=== PATIENT | male | born 1970 | race African-American/Black ===

== ENCOUNTER 2022-02-08 07:50 | Emergency (ER) | payer MEDICARE, MEDICAID, SELFPAY ==
[2022-02-08] MEDS: ondansetron HCL 4 MG/2 ML VIAL IVPUSH (07:50)
[2022-02-08] MEDS: Naloxone HCl Nasal 4 MG SPRAY NOSTRILALT (07:50)
[2022-02-08 07:56] VITALS: BP 152/102; BP 212/93; PULSE 106; PULSE 114; RESP 20; TEMP 37.1; O2SAT 96; O2SAT 97; BMI 28.8
[2022-02-08 08:13] VITALS: BP 151/98; PULSE 100; O2SAT 99
--- NOTE | 2022-02-08 08:13 | ED.OVERDOSE ---
HPI - Overdose General Chief Complaint: Overdose Stated Complaint: Overdose Time Seen by Provider: 02/08/22 08:10 Source: patient and EMS Mode of arrival: EMS History of Present Illness HPI Narrative: 51-year-old male who states that he is currently [facility] is brought in by ambulance when they were called because patient was acting erratically and stating that he had used crack and then became unconscious with an O2 sat of 35% and shallow infrequent respirations. Use brought to the emergency room with 100% non-rebreather by EMS and was noted to have shallow sonorous breathing, immediate Narcan was administered, IV was established. Related Data Allergies Allergy/AdvReac Type Severity Reaction Status Date / Time No Known Allergies Allergy Verified 02/08/22 08:00 Review of Systems Review of Systems: Pertinent positives and negatives as stated in HPI 10 point review of systems otherwise negative. PMFSH Past Medical History Source: nursing notes reviewed Social History Social History Alcohol intake: current Patient Tobacco Use Status: Current everyday Tobacco user Use of substances other than those prescribed or required for medical reasons: Yes Advance Directives: No Advance Directives Information Provided: No Physical Exam Vital Signs: Vital Signs: Last Vital Signs Temp 98.7 F 02/08/22 07:56 Pulse 91 02/08/22 11:14 Resp 16 02/08/22 11:14 BP 121/71 02/08/22 11:14 Pulse Ox 95 02/08/22 11:14 O2 Del Method 02/08/22 11:14 O2 Flow Rate 2 02/08/22 09:06 Oxygen Flow Rate 2 02/08/22 07:56 BMI result Body Mass Index 28.8 VITAL SIGNS: Reviewed. AFTER NASAL NARCAN WAS GIVEN GENERAL: Well developed, well nourished, in MINIMAL distress. HEAD: Normocephalic/atraumatic EYES: PERRLA, EOMI, pinpoint pupils EARS: Ext canals without abnormality OROPHARYNX: no oral lesions noted, posterior pharynx clear with small amount blood noted on the tone NECK: Supple, no adenopathy LUNGS: Normal breath sounds. No adventitious sounds or accessory muscle use. SpO2<99> on 2 L nasal cannula CARDIOVASCULAR: Regular rate and rhythm without noted murmurs ABDOMEN: Soft, non-tender, non-distended with bowel sounds. MUSCULOSKELETAL: No tenderness, deformities, or effusions noted on gross inspection. EXTREMITIES: No cyanosis, clubbing or edema. SKIN: Inspection of the skin reveals no rashes NEUROLOGIC: Alert and oriented x 3 after Narcan. Strength and sensation to light touch were grossly intact x 4. Course Course Course Narrative: 51-year-old male with history and clinical presentation consistent with accidental overdoses patient denies any suicidal homicidal ideations. Patient appears to be in a detox program at present but will place JORDAN eval, patient is currently awake but will remain on capnography until discharge and at that time will be discharged home with home Narcan. Patient is otherwise doing well, he has seen the women's swim coach and is at this time declining any further detox intervention and is scheduled to enter into a program through [facility]. He is otherwise discharged home in stable condition with home Narcan. Discharge Plan Discharge Clinical Impression: Drug overdose Patient Disposition: Home, Self-Care Instructions: Adult Overdose (ED) Additional Instructions: Stay off the drugs and be successful at [facility]. Do not hesitate to return to this ER if you need any additional help. Referrals: Mauricio Sherman [Primary Care Provider] -
[2022-02-08 09:06] VITALS: BP 132/85; PULSE 102; RESP 18; O2SAT 97
--- NOTE | 2022-02-08 09:49 | PC.NURSE ---
Pt remains asleep, vitals stable, ETC02 41, sat 99% on 2lpm. Awakes to verbal stimuli. CARE team to bedside but will reassess when pt more awake for detox needs however pt [facility]
[2022-02-08 11:14] VITALS: BP 121/71; PULSE 91; RESP 16; O2SAT 95
--- NOTE | 2022-02-08 11:16 | HO.SUDE ---
Met with pt in ED6 after pt was BIBA after patient was found acting erratically and reporting he had used crack. [employer] pt had an O2 sat of 35% and shallow infrequent respirations. Upon arrival received Narcan with positive effect. Upon entering pts room, pt asleep but easily awakens to voice. Pt thankful for help he has received and frustrated with self for using this morning. Pt reports having been dc from [place] [id number] ([facility]) last Friday. Last use of substances was December 06. Pt reports hx of heroin use, 1 bundle daily IN, as well as crack cocaine. Pt reports marijuana daily. Pt reports since being discharged from [facility] staying at a friend's house that is safe and supportive. This morning pt reports going to hand picker med bag at a different place and on the way was walking with someone when they decided to get heroin. Pt reports using one bag, IN, states I didn't even use a straw, I just opened the bag and sniffed it while I was walking. Pt reports this is first overdose. Pt educated regarding fentanyl and using substances after a period of abstinence. Pt reports longest period in recovery was 3 years after moving to [place] from [place] in 2012. Pt has been receiving Suboxone through the [place] since November, reports one 8 mg film daily. Pt reports Suboxone is in med bag that is going to be picked up today. Reports last dose was 2 days ago. Per [facility], pt has not filled a Suboxone script in at least 2 years. Educated pt regarding precipitated withdrawal and options for restarting/taking Suboxone after using full agonist opioids. Pt understands, denies questions. Pt declines recovery resources/referrals at this time. Plan is to return to safe housing and return to [place] next week to begin a JORDAN program. Pt educated regarding [facility] and other community supports. Pt denies other questions or concerns. Discussed with ED provider.
[2022-02-08] MEDS: Naloxone HCl Nasal TAKE HOME 4 MG SPRAY NOSTRILALT (12:07)
--- NOTE | 2022-02-08 12:14 | PC.NURSE ---
PT AWAKE, ALERT. ANSWERING QUESTIONS APPROPRIATELY. SKIN WARM AND DRY. RESP UNLABORED. DENIES N/V. NO C/O PAIN. IV REMOVED. PLAN IS FOR DC HOME. NARCAN GIVEN UPON DC. PT AGREEABLE. DENIES SI/HI.
== END 2022-02-08 12:15 | disposition home or self-care (01) ==
PROVIDERS: Emergency Provider Student in an Organized Health Care Education/Training Program; PCP Internal Medicine
DX: T40.5X1A Poisoning by cocaine, accidental (unintentional), initial encounter (principal); Y92.9 Unspecified place or not applicable; F17.200 Nicotine dependence, unspecified, uncomplicated; Z71.6 Tobacco abuse counseling; Z71.51 Drug abuse counseling and surveillance of drug abuser
CPT/HCPCS: 96374; 99284; J2405

== ENCOUNTER 2022-02-09 21:08 | Emergency (ER) | payer MEDICARE, MEDICAID, SELFPAY ==
--- NOTE | ~2022-02-09 | CT_ITS ---
EXAMINATION: CT HEAD WITHOUT CONTRAST CLINICAL INFORMATION: Fall. Overdose. COMPARISON: None. TECHNIQUE: Contiguous axial imaging was performed from the skull base to vertex without intravenous contrast. This CT examination was performed using dose optimization techniques as appropriate, variously including the following: * Automated exposure control * Adjustment of mA and/or kV according to patient size (this includes techniques or standardized protocols for targeted exams where dose is matched to indication/reason for exam; i.e. extremities or head) Use of iterative reconstruction technique DLP: 657 mGy-cm. FINDINGS: There is no evidence of acute intracranial hemorrhage or territorial infarction. No abnormal mass effect or midline shift is seen. Nath to white matter differentiation is well preserved. No extra-axial fluid collections are identified. No hydrocephalus. No significant volume loss. There is no abnormal attenuation within the brain parenchyma. The osseous structures and soft tissues are normal. The mastoid air cells and visualized portions of the paranasal sinuses are well aerated. CT/CT head/brain wo con IMPRESSION: No acute intracranial pathology.
--- NOTE | ~2022-02-09 | XR_ITS ---
EXAMINATION: XR CHEST CLINICAL INFORMATION: Shortness of breath, vomiting. COMPARISON: Chest radiograph 07/10/2014. TECHNIQUE: AP view of the chest was obtained. FINDINGS: Cardiomediastinal silhouette is within normal limits for technique. Multifocal interstitial thickening and hazy attenuation of the lungs. No pleural effusion. No pneumothorax. No acute osseous abnormalities. XR/XR chest 1V IMPRESSION: Multifocal interstitial opacities could be a manifestation of an atypical infection. Recommend clinical correlation and a follow-up imaging after treatment to ensure resolution.
--- NOTE | 2022-02-09 21:14 | ED.OVERDOSE ---
HPI - Overdose General Chief Complaint: Overdose Stated Complaint: od Time Seen by Provider: 02/09/22 21:09 Source: EMS Mode of arrival: EMS Limitations: altered mental status (patient minimally responsive) History of Present Illness HPI Narrative: This is a 52-year-old male unknown medical history presenting to the emergency department via ambulance for an opiate overdose. According to EMS patient was [place] unresponsive in the park by police, police gave 4 mg of intranasal Narcan, when EMS arrived they started a 20 gauge IV and gave 2 mg of IV Narcan with good response, patient became extremely agitated and combative however. Patient responding only to painful stimuli, alert to person, not time, place or situation. I am unable to obtain an accurate history from patient as he is minimally responsive. According to EMS patient is not from the area and he recently moved from [place]. Paraphernalia was found around patient with 3 bundles of heroion Or fentanyl. Related Data Previous Rx's Medication Instructions Recorded azithromycin 250 mg tablet See Rx Instructions PO .COMPLEX #6 02/10/22 tabs naloxone 4 mg/actuation nasal 4 mg intranasal Q2M PRN opioid 02/10/22 spray (Narcan) overdose #2 ea Allergies Allergy/AdvReac Type Severity Reaction Status Date / Time No Known Allergies Allergy Verified 02/08/22 08:00 Review of Systems Review of Systems: Yes Unobtainable due to mental status PMFSH Past Medical History Attestation statement: The following information was validated with the patient. Source: old records reviewed and nursing notes reviewed Social History Social History Alcohol intake: current Patient Tobacco Use Status: Current everyday Tobacco user Advance Directives: No Advance Directives Information Provided: No Physical Exam Vital Signs: Vital Signs: Last Vital Signs Temp 98.0 F 02/09/22 21:28 Pulse 92 02/10/22 00:00 Resp 19 02/10/22 00:00 BP 160/65 H 02/10/22 00:00 Pulse Ox 96 02/10/22 00:00 O2 Del Method 02/10/22 00:00 BMI result Body Mass Index 25.4 Stable vitals Appearance: Patient awakes to painful stimuli. No acute distress.? Head: Normocephalic, atraumatic, no step-offs or deformities Eyes: Pupils equal, round and reactive to light.? Bilateral pupils pinpoint ENT: Pharynx normal.? Neck: Normal inspection.? Neck supple.? CVS: Normal heart rate and rhythm.? Pulses normal.? Respiratory: No respiratory distress.? Breath sounds normal.? Abdomen: Soft and nontender.? Skin: Skin warm and dry.? Normal skin color.? Normal skin turgor.? Extremities: No lower extremity edema.? No calf ttp. 5/5 strength to bilateral upper and lower extremities Neuro: Patient wakes to painful stimuli. Course Reevaluation(s) Reevaluation #1: CBC within normal limits. Chemistry with no acute electrolyte abnormalities requiring intervention. Ethanol negative. COVID negative. CT of head no acute findings. CXR with multifocal opacities patient will be dc with azithro for possible viral pna, however patient with stable vitals and clear lungs patient without complaints of sob or CP. Now that patient is much more alert and awake, able to obtain a physical exam which is nonfocal, 5/5 strength upper and lower extremities, following commands, answering questions appropriately, cranial nerves 2-12 intact. Denies SI/HI. Was an accidental OD At this time patient will be placed in physician observation to allow more time to be evaluated by the care team for a substance use disorder evaluation. Time observation was started patient common cooperative. Will continue to monitor Sign out to Dr. Malcolm. Time: 01:55 MDM - Overdose MDM Narrative Medical decision making narrative: [id number] 52-year-old male presents to the emergency department with EMS for an opiate overdose, found in an alley not responding. Police gave him 4 mg of intranasal Narcan, ambulance gave him 2 mg of IV Narcan, patient now awake and responding to voice and sternal rub. Denies any complaints at this time Physical examination benign. Stable vitals. Plan medical clearance. SUDE Medical Records Attestation: I reviewed the patient's medical records. Lab Data Attestation: I reviewed the patient's lab results. Result diagrams: 02/09/22 22:05 02/09/22 22:05 Labs: Lab Results 02/09/22 02/09/22 02/09/22 Range/Units 21:58 22:05 22:05 WBC 10.7 (4.8-10.8) X10*3/uL RBC 4.39 L (4.60-5.80) X10*6/uL Hgb 11.6 L (14.0-18.0) g/dl Hct 36.5 L (42.0-52.0) % MCV 83.1 (80.0-98.0) fL MCH 26.4 L (27.0-33.0) pg MCHC 31.8 (31.0-36.0) g/dl RDW 13.6 (11.0-16.0) % Plt Count 244 (160-400) X10*3/uL MPV 10.5 (9.4-12.4) fL Immature Gran % (Auto) 0.3 (0.0-0.4) % Neut % (Auto) 61.6 (45-73) % Lymph % (Auto) 27.3 (20-40) % [place] % (Auto) 7.8 (2-11) % Eos % (Auto) 2.5 (0-4) % Baso % (Auto) 0.5 (0-2) % Lymph # (Auto) 2.9 (1.2-4.9) X10*3/uL [place] # (Auto) 0.8 (0.1-1.2) X10*3/uL Eos # (Auto) 0.3 (0.0-0.4) X10*3/uL Baso # (Auto) 0.1 (0.0-0.2) X10*3/uL Abs Immat Gran (auto) 0.03 (0.00-0.03) X10*3/uL Absolute Neuts (auto) 6.6 (2.0-8.3) x10*3/uL Absolute Nucleated RBC 0.000 (0.0-0.012) X10*3/uL Nucleated RBC % (auto) 0.0 (0.0-0.2) /100WBC Sodium 145 (135-145) mmol/L Potassium 3.6 (3.3-5.1) mmol/L Chloride 110 H (96-108) mmol/L Carbon Dioxide 23 (22-29) mmol/L Anion Gap 16 (12-20) BUN 21 H (9-16) mg/dL Creatinine 1.19 (0.5-1.4) mg/dL Estim Creat Clear Calc 77.8 Estimated GFR > 60 Random Glucose 108 (60-115) mg/dL Calcium 8.8 (8.4-10.2) mg/dL Magnesium 2.2 (1.6-2.6) mg/dL Total Bilirubin 0.5 (0.0-1.0) mg/dL AST 60 H (5-37) U/L ALT 49 H (0-40) U/L Alkaline Phosphatase 78 (39-117) U/L Total Protein 7.3 (6.5-8.0) g/dL Albumin 4.1 (3.5-5.0) g/dL Ethyl Alcohol mg/dL COVID-19 (SIRI) Negative (Negative) COVID-19 Clin Com See Note 02/09/22 Range/Units 22:05 WBC (4.8-10.8) X10*3/uL RBC (4.60-5.80) X10*6/uL Hgb (14.0-18.0) g/dl Hct (42.0-52.0) % MCV (80.0-98.0) fL MCH (27.0-33.0) pg MCHC (31.0-36.0) g/dl RDW (11.0-16.0) % Plt Count (160-400) X10*3/uL MPV (9.4-12.4) fL Immature Gran % (Auto) (0.0-0.4) % Neut % (Auto) (45-73) % Lymph % (Auto) (20-40) % Ren[place] % (Auto) (2-11) % Eos % (Auto) (0-4) % Baso % (Auto) (0-2) % Lymph # (Auto) (1.2-4.9) X10*3/uL [place] # (Auto) (0.1-1.2) X10*3/uL Eos # (Auto) (0.0-0.4) X10*3/uL Baso # (Auto) (0.0-0.2) X10*3/uL Abs Immat Gran (auto) (0.00-0.03) X10*3/uL Absolute Neuts (auto) (2.0-8.3) x10*3/uL Absolute Nucleated RBC (0.0-0.012) X10*3/uL Nucleated RBC % (auto) (0.0-0.2) /100WBC Sodium (135-145) mmol/L Potassium (3.3-5.1) mmol/L Chloride (96-108) mmol/L Carbon Dioxide (22-29) mmol/L Anion Gap (12-20) BUN (9-16) mg/dL Creatinine (0.5-1.4) mg/dL Estim Creat Clear Calc Estimated GFR Random Glucose (60-115) mg/dL Calcium (8.4-10.2) mg/dL Magnesium (1.6-2.6) mg/dL Total Bilirubin (0.0-1.0) mg/dL AST (5-37) U/L ALT (0-40) U/L Alkaline Phosphatase (39-117) U/L Total Protein (6.5-8.0) g/dL Albumin (3.5-5.0) g/dL Ethyl Alcohol < 10 mg/dL COVID-19 (SIRI) (Negative) COVID-19 Clin Com Critical Care Time Critical Care Time Critical Care Time: No Discharge Plan Discharge Clinical Impression: Drug overdose, Viral pneumonia Patient Disposition: Still a Patient Instructions: Adult Overdose (ED) Additional Instructions: Take your medications as prescribed. If you were prescribed antibiotics today, it is important that you take your medication to their entirety, do not skip any doses, do not finish them early. Follow-up with your primary care provider this week. Return to the emergency department with new or worsening symptoms. Such as fevers, chills, chest pain, shortness of breath, nausea, vomiting, dizziness, headache, vision changes, lethargy In case of emergency call 911 XR/XR chest 1V IMPRESSION: Multifocal interstitial opacities could be a manifestation of an atypical infection. Recommend clinical correlation and a follow-up imaging after treatment to ensure resolution. ? Prescriptions: New azithromycin 250 mg tablet See Rx Instructions .ROUTE .COMPLEX Qty: 6 0RF Rx Instructions: For 250 mg dose pack: take 500 mg today (day 1), then 250 mg for 4 days (days 2-5) naloxone [Narcan] 4 mg/actuation spray,non-aerosol 4 mg intranasal Q2M PRN (Reason: opioid overdose) Qty: 2 0RF Rx Instructions: spray 1 dose into ONE nostril; alternate nostrils w each dose until help arrives Referrals: [facility] [Provider Group] - 1 day Physician,Unknown J [Primary Care Provider] - 2 days Stand Alone Forms: Work/School Release
[2022-02-09 21:28] VITALS: BP 142/103; BP 150/100; PULSE 120; PULSE 97; RESP 24; TEMP 36.7; O2SAT 100; O2SAT 97; BMI 25.4
[2022-02-09] MEDS: 0.9 % Sodium Chloride 1,000 ML 999 ML IV (21:51)
[2022-02-09 21:52] VITALS: PULSE 93; RESP 20
[2022-02-09] MEDS: ondansetron HCL 4 MG/2 ML VIAL IVPUSH (21:52)
[2022-02-09 22:09] LABS: MANUAL DIFF FLAG NO
[2022-02-09 22:10] VITALS: PULSE 89; RESP 22; O2SAT 97
[2022-02-09 22:10] LABS: Basophils Absolute Auto 0.1 X10*3/uL (0.0-0.2); Basophils Percent Auto 0.5 % (0-2); Eosinophils Absolute Auto 0.3 X10*3/uL (0.0-0.4); Eosinophils Percent Auto 2.5 % (0-4); Hematocrit 36.5 % (42.0-52.0); Hemoglobin 11.6 g/dl (14.0-18.0); Imm Gran Abs Auto 0.03 X10*3/uL (0.00-0.03); Imm Gran Pct Auto 0.3 % (0.0-0.4); Lymphocytes Absolute Auto 2.9 X10*3/uL (1.2-4.9); Lymphocytes Percent Auto 27.3 % (20-40); Mean Corpuscular HGB Conc 31.8 g/dl (31.0-36.0); Mean Corpuscular Hemoglobin 26.4 pg (27.0-33.0); Mean Corpuscular Volume 83.1 fL (80.0-98.0); Mean Platelet Volume 10.5 fL (9.4-12.4); Monocytes Absolute Auto 0.8 X10*3/uL (0.1-1.2); Monocytes Percent Auto 7.8 % (2-11); Neutrophils Absolute Auto 6.6 x10*3/uL (2.0-8.3); Neutrophils Percent Auto 61.6 % (45-73); Platelet Count 244 X10*3/uL (160-400); Red Blood Count 4.39 X10*6/uL (4.60-5.80); Red Cell Distribution Width 13.6 % (11.0-16.0); White Blood Count 10.7 X10*3/uL (4.8-10.8)
[2022-02-09 22:20] LABS: COVID-19 Test Negative (Negative)
[2022-02-09 22:23] LABS: Ethanol < 10 mg/dL
[2022-02-09 22:27] LABS: Alanine Aminotransferase 49 U/L (0-40); Albumin Level 4.1 g/dL (3.5-5.0); Alkaline Phosphatase 78 U/L (39-117); Anion Gap 16 (12-20); Aspartate Amino Transferase 60 U/L (5-37); Bilirubin Total 0.5 mg/dL (0.0-1.0); Blood Urea Nitrogen 21 mg/dL (9-16); Calcium 8.8 mg/dL (8.4-10.2); Carbon Dioxide 23 mmol/L (22-29); Chloride 110 mmol/L (96-108); Creatinine Clr Calc Pharmacy 77.8; Estimated Glomerular Filt Rate > 60; Glucose Random 108 mg/dL (60-115); Magnesium 2.2 mg/dL (1.6-2.6); Potassium 3.6 mmol/L (3.3-5.1); Sodium 145 mmol/L (135-145); Total Protein 7.3 g/dL (6.5-8.0)
[2022-02-10] VITALS: BP 160/65; PULSE 92; RESP 19; O2SAT 96
[2022-02-10 02:00] VITALS: BP 144/97; PULSE 83; RESP 14; O2SAT 94
[2022-02-10 04:00] VITALS: BP 159/98; PULSE 81; RESP 17; O2SAT 93
== END 2022-02-10 06:10 | disposition home or self-care (01) ==
PROVIDERS: Physician Assistant; Emergency Provider Emergency Medicine
DX: T40.1X1A Poisoning by heroin, accidental (unintentional), initial encounter (principal); R40.4 Transient alteration of awareness; F19.90 Other psychoactive substance use, unspecified, uncomplicated; Y92.830 Public park as the place of occurrence of the external cause; J12.9 Viral pneumonia, unspecified; Z20.822 Contact with and (suspected) exposure to COVID-19; F17.200 Nicotine dependence, unspecified, uncomplicated
CPT/HCPCS: 36415; 70450; 71045; 80053; 82077; 83735; 85025; 87635; 96361; 96374; 99284; 99285; J2405

== ENCOUNTER 2022-07-21 10:48 | Emergency (ER) | payer MEDICARE, MEDICAID, SELFPAY ==
[2022-07-21 11:01] VITALS: BP 159/99; BP 170/90; PULSE 122; PULSE 92; RESP 28; TEMP 36.3; O2SAT 91; O2SAT 96; BMI 30.4
--- NOTE | 2022-07-21 11:24 | PC.NURSE ---
pt sleepy, wakes to verbal stimulus. AO to person and place. quality assurance monitor body applied, seen provider, will continue to monitor.
--- NOTE | 2022-07-21 11:49 | ED_ITS ---
HPI - Overdose General Chief Complaint: Overdose Stated Complaint: OD,NARCAN GIVEN W/GOOD RESULT PER EMS Time Seen by Provider: 07/21/22 11:04 Source: patient Mode of arrival: ambulatory Limitations: no limitations History of Present Illness HPI Narrative: Is a 52 a [place] presents emergency department via EMS after potential overdose. Patient reports that the last thing he recalls is sniffing a bag of heroin. He does not recall where he was. He states he typically uses 1-2 bundles daily. Per EMS report, patient had stumbled and collapsed while in a convenience store, received 8 mg of Narcan, vomited initially upon awakening. Patient currently without any physical complaints, he is drowsy but arousable to verbal stimuli. At this time declines interest in detox. Related Data Previous Rx's Medication Instructions Recorded azithromycin 250 mg tablet See Rx Instructions PO .COMPLEX #6 02/10/22 tabs naloxone 4 mg/actuation nasal 4 mg intranasal Q2M PRN opioid 02/10/22 spray (Narcan) overdose #2 ea Allergies Allergy/AdvReac Type Severity Reaction Status Date / Time No Known Allergies Allergy Verified 07/21/22 11:00 Review of Systems Review of Systems: Constitutional : No Fever, No Chills ENT/Mouth : No Ear Pain, No Nasal Congestion, No sore throat Eyes: No Eye Pain, No Swelling, No Redness Cardiovascular : No Chest Pain, No SOB Respiratory : No Cough, No Sputum, No Dyspnea Gastrointestinal : positive Nausea, No Vomiting, No Diarrhea, No Hematochezia, No Melena Genitourinary : No Dysuria, No Urinary Frequency, No Hematuria Musculoskeletal : No Myalgias Skin : No Skin Lesions, No rash Neuro : No Weakness, No Numbness, No Paresthesias, No Dizziness, No Headache Psych : no Anxiety, no Depression, no SI/HI Yes all other systems are reviewed and are negative PMFSH Past Medical History Attestation statement: The following information was validated with the patient. Source: old records reviewed Medical History Substance use Social History Social History Alcohol intake: current Alcohol intake frequency: a few times a week Patient Tobacco Use Status: Current everyday Tobacco user Smoked in Last 30 Days: Yes Use of substances other than those prescribed or required for medical reasons: Yes Substance Use Type: Crack/Cocaine, Heroin and Marijuana Substance Use Frequency: Monthly Last Used Substance: Hours (ago) Any prior treatment program specific to substance use: Yes Advance Directives: No Advance Directives Information Provided: No Physical Exam Vital Signs: Vital Signs: Last Vital Signs Temp 99.2 F 07/21/22 14:08 Pulse 94 07/21/22 14:08 Resp 16 07/21/22 14:08 BP 140/86 H 07/21/22 14:08 Pulse Ox 98 07/21/22 14:08 O2 Del Method 07/21/22 14:08 BMI result Body Mass Index 30.4 Appearance: Alert.?Oriented to person, place and time. No acute distress.?Normal affect. Eyes: Pupils equal, round and reactive to light.? ENT: Pharynx normal.?? Neck: Normal inspection.? Neck supple.?? CVS: Heart sounds normal. Normal heart rate and rhythm.? Pulses normal.?? Respiratory: No respiratory distress.? Lung sounds clear to auscultation bilaterally?? Abdomen: Soft and non-tender. Skin: Skin warm and dry.? Normal skin color.? Extremities: No lower extremity edema.? Neuro: Moves all extremities spontaneously. Sensation intact bilaterally. CN II- XII intact. No focal neuro deficits. Ambulates with normal steady gait. Course Reevaluation(s) Reevaluation #1: At this time, patient remains drowsy, easily arousable to verbal stimuli. At this time, not clear for discharge. Will continue to monitor. No distress. Time: 13:09 Reevaluation #2: At this time patient is awake, ambulatory with a steady gait. Requesting to melissa pickett at this time. Again offered assistance with detox however he declines. Respirations are regular even and nonlabored. Conscious alert and oriented x4. Provided with take-home Narcan kit, instructed on use. At this time stable for discharge. Time: 14:17 Medications Administered Discontinued Medications Generic Name Dose Route Start Last Admin Trade Name Blayne PRN Reason Stop Dose Admin Naloxone HCl 4 mg 07/21/22 14:17 07/21/22 14:27 Naloxone Hcl Nasal Take Home 4 Mg [place] NOSTRILALT 07/21/22 14:18 4 mg ONCE ONE Administration Medical Decision Making Medical Decision Making MDM Narrative: Patient is a 52-year-old male with past medical history of polysubstance abuse who presents to the emergency department via EMS after overdose. At the time my examination patient has no physical complaints. He is lethargic, but responds to verbal stimuli. No respiratory distress, managing secretions, able to speak clear brief sentences. Offered detox at this time, patient declines interest. Will continue to monitor patient for signs of overdose, remains on traffic monitor specialist and O2 saturation monitoring. Differential Diagnosis Differential Diagnoses: The differential diagnosis associated with the presentation includes Admission/Observation Consideration of admission/observation: Escalation of care including admission/observation considered (Declines assistance with detox, observed in the emergency department for overdose) Prescription Management I considered prescription management with: Other (Narcan) Chronic Conditions Patient?s care impacted by: Other (Polysubstance use) Discharge Plan Discharge Clinical Impression: Drug overdose Patient Disposition: Home, Self-Care Instructions: Adult Overdose (ED) Additional Instructions: You were offered assistance with detox however you declined. You have been given Narcan to take home, please have this on you at all times, make sure that family and friends around are aware, in the event that you overdose again this medication can help next breathe again. If you need to use Narcan you should come to the emergency department to be evaluated after, as this medication wears off quickly, urine to could in overdose again You may return back to emergency department with any new or worsening symptoms or concerns. Prescriptions: No Action azithromycin 250 mg tablet See Rx Instructions .ROUTE .COMPLEX Qty: 6 0RF Rx Instructions: For 250 mg dose pack: take 500 mg today (day 1), then 250 mg for 4 days (days 2-5) naloxone [Narcan] 4 mg/actuation spray,non-aerosol 4 mg intranasal Q2M PRN (Reason: opioid overdose) Qty: 2 0RF Rx Instructions: spray 1 dose into ONE nostril; alternate nostrils w each dose until help arrives Referrals: Physician,Unknown J [Primary Care Provider] - Interventions: [place]ffie-Suicide Risk Severity Scale Last Done: 07/21/22 11:16 ED Discharge Assessment Last Done: 07/21/22 14:34 Discharge Date/Time: 07/21/22 14:34
[2022-07-21 14:08] VITALS: BP 140/86; PULSE 94; RESP 16; TEMP 37.3; O2SAT 98
--- NOTE | 2022-07-21 14:15 | PC.NURSE ---
pt AOx3, resting comfortable. VS stable.
[2022-07-21] MEDS: Naloxone HCl Nasal TAKE HOME 4 MG SPRAY NOSTRILALT (14:27)
--- NOTE | 2022-07-21 14:29 | PC.NURSE ---
pt given take-home narcan upon discharge
== END 2022-07-21 14:34 | disposition home or self-care (01) ==
PROVIDERS: Emergency Provider Student in an Organized Health Care Education/Training Program
DX: T40.1X1A Poisoning by heroin, accidental (unintentional), initial encounter (principal); Y92.9 Unspecified place or not applicable; F14.10 Cocaine abuse, uncomplicated; F12.10 Cannabis abuse, uncomplicated; Z71.51 Drug abuse counseling and surveillance of drug abuser; Z79.899 Other long term (current) drug therapy
CPT/HCPCS: 99285

== ENCOUNTER 2022-08-11 17:35 | Emergency (ER) | payer MEDICARE, MEDICAID, SELFPAY ==
[2022-08-11 17:52] VITALS: BP 148/96; BP 166/108; PULSE 85; PULSE 87; RESP 20; TEMP 36.6; O2SAT 95; BMI 27.8
--- NOTE | 2022-08-11 18:00 | PC.NURSE ---
pt placed in hospital attire, belongings to moustapha.
--- NOTE | 2022-08-11 18:19 | ED.OVERDOSE ---
HPI - Overdose General Chief Complaint: Overdose Stated Complaint: overdose Time Seen by Provider: 08/11/22 17:51 Source: patient and EMS Mode of arrival: EMS Limitations: no limitations History of Present Illness HPI Narrative: 52-year-old male came in by ambulance after possible heroin overdose. Patient admitted to use 2 bags of heroin bone from the street by snoring, patient do not remember what happened after patient was given total of 10 mg of Narcan intranasally by the police and EMS patient responded to the Narcan patient emergency room is drowsy but arousable able to conduct a good conversation, patient do not feel depressed, no SI, no HI, no hallucination. Related Data Previous Rx's Medication Instructions Recorded azithromycin 250 mg tablet See Rx Instructions PO .COMPLEX #6 02/10/22 tabs naloxone 4 mg/actuation nasal 4 mg intranasal Q2M PRN opioid 02/10/22 spray (Narcan) overdose #2 ea Allergies Allergy/AdvReac Type Severity Reaction Status Date / Time No Known Allergies Allergy Verified 07/21/22 11:00 Review of Systems Review of Systems: All other systems are reviewed and are negative Constitutional: Reports as per HPI and Reports no additional constitutional complaints Eyes: Reports as per HPI and Reports no additional eye complaints Reports system reviewed and no additional complaints, except as documented Cardiovascular: Reports as per HPI and Reports no additional cardiovascular complaints Respiratory: Reports as per HPI and Reports no additional respiratory complaints Gastrointestinal: Reports as per HPI and Reports no additional gastrointestinal complaints Genitourinary: Reports no additional female genitourinary complaints Musculoskeletal: Reports no additional musculoskeletal complaints Skin/Breast: Reports system reviewed and no additional complaints, except as docu Psychiatric: Reports no additional psychiatric complaints Endocrine: Reports no additional endocrine complaints Hematologic/Lymphatic: Reports no additional hematologic/lymphatic complaints Allergic/Immunologic: Reports no additional allergic/immunologic complaints Reports system reviewed and no additional complaints, except as documented and Reports Abnormal speech present [facility] Past Medical History Medical History Substance use Social History Social History Alcohol intake: current Alcohol intake frequency: a few times a week Patient Tobacco Use Status: Current everyday Tobacco user Substance Use Type: Crack/Cocaine, Heroin and Marijuana Advance Directives: No Advance Directives Information Provided: No Physical Exam Vital Signs: Vital Signs: Last Vital Signs Temp 97.9 F 08/11/22 17:52 Pulse 87 08/11/22 17:52 Resp 20 08/11/22 17:52 BP 166/108 H 08/11/22 17:52 O2 Del Method 08/11/22 17:52 BMI result Body Mass Index 27.8 Vital signs have been reviewed as appeared to be correct. Blood pressure elevated. Heart rate normal. Respiration rate normal. Temperature normal. Oxygen saturation normal. Appearance: Alert. Oriented X3. No acute distress. Head: Normal external exam. Normocephalic. Atraumatic. No Booth signs noted. No raccoon eyes noted Eyes: PERRLA. EOMI. Conjunctiva and sclera normal. Eyelids normal. ENT: TM's Normal. Pharynx normal. Uvula midline. Moist mucous membranes. No trismus noted. No drooling noted. No muffled voice noted. Neck: Normal inspection. Neck supple. FROM. No adenopathy. Thyroid Normal. No meningeal signs. No neck mass noted. CVS: Normal heart rate and rhythm. Heart sound normal. No murmurs noted. Pulses normal throughout. Respiratory: No respiratory distress. Painless inspiration. Breath sounds normal. No wheezes/rales/rhonchi noted. Chest nontender. No accessory muscle usage noted or decreased air movement noted. Abdomen: Soft and nontender. Bowel sounds normal in all 4 quadrants. No distention noted. No organomegaly noted. No visible injury noted. Back: No CVA tenderness. Full range of motion noted. Skin: Skin warm and dry. Normal skin color. Normal skin turgor. No rashes/lesions/lacerations noted. Extremities: No lower extremity edema. Extremities exhibit normal range of motion. Extremities nontender. Neuro: Oriented X 3. Cranial nerve exam: II-XII are grossly intact No motor deficit. No sensory deficit. Reflexes normal. Course Course Course Narrative: 52-year-old male overdosed on snorting heroin, patient require Narcan pre-hospital, patient now is awake alert, oriented x3 able to carry conversation, no SI, no HI no hallucination. Will discharge with Narcan after evaluated by care team. Medical Decision Making Differential Diagnosis Differential Diagnoses: The differential diagnosis associated with the presentation includes (Heroin overdose, depression, SI.) Discharge Plan Discharge Clinical Impression: Accidental drug overdose Patient Disposition: Home, Self-Care Instructions: Adult Overdose (ED) Prescriptions: No Action azithromycin 250 mg tablet See Rx Instructions .ROUTE .COMPLEX Qty: 6 0RF Rx Instructions: For 250 mg dose pack: take 500 mg today (day 1), then 250 mg for 4 days (days 2-5) naloxone [Narcan] 4 mg/actuation spray,non-aerosol 4 mg intranasal Q2M PRN (Reason: opioid overdose) Qty: 2 0RF Rx Instructions: spray 1 dose into ONE nostril; alternate nostrils w each dose until help arrives Referrals: Physician,Unknown J [Primary Care Provider] -
--- NOTE | 2022-08-11 19:22 | MHC.RECOVSUP ---
? Reason for consult:Recovery Support o Current location: [facility] ? o Identified substance use concern:JORDAN - Heroine - Overdose - Support ? Additional information:?Pt consult with Provider before entry. Pt was unresponsive and sleeping. Ferry Hand left community resources in his room before shift ended.
[2022-08-11] MEDS: Naloxone HCl Nasal TAKE HOME 4 MG SPRAY NOSTRILALT (22:53)
== END 2022-08-11 23:04 | disposition home or self-care (01) ==
PROVIDERS: Emergency Provider Emergency Medicine
DX: T40.1X1A Poisoning by heroin, accidental (unintentional), initial encounter (principal); Y92.9 Unspecified place or not applicable; F14.10 Cocaine abuse, uncomplicated; Z71.51 Drug abuse counseling and surveillance of drug abuser
CPT/HCPCS: 99283

== ENCOUNTER 2022-08-25 20:15 | Emergency (ER) | payer MEDICARE, MEDICAID, SELFPAY ==
[2022-08-25 20:21] VITALS: BP 159/105; BP 180/100; PULSE 100; PULSE 92; RESP 18; TEMP 36.9; O2SAT 100; BMI 29.2
--- NOTE | 2022-08-25 21:33 | ED.OVERDOSE ---
HPI - Overdose General Chief Complaint: Overdose Stated Complaint: overdose Time Seen by Provider: 08/25/22 20:46 Source: patient and EMS Mode of arrival: EMS Limitations: no limitations History of Present Illness HPI Narrative: 52-year-old male presents via EMS for overdose. Patient's roommate found him unresponsive, patient was given 12 mg intranasal Narcan, patient was alert and responsive once EMS arrived. Patient was able to ambulate to the EMS stretcher. complaint: accidental overdose Onset (ago): hour(s) (Within the hour of arrival) Context: Intentional Overdose: drug/ETOH problems Context: Accidental Overdose: wanted to get high Associated symptoms: depression Treatments Prior to Arrival: narcan Related Data Previous Rx's Medication Instructions Recorded azithromycin 250 mg tablet See Rx Instructions PO .COMPLEX #6 02/10/22 tabs naloxone 4 mg/actuation nasal 4 mg intranasal Q2M PRN opioid 02/10/22 spray (Narcan) overdose #2 ea Allergies Allergy/AdvReac Type Severity Reaction Status Date / Time No Known Allergies Allergy Verified 07/21/22 11:00 Review of Systems Review of Systems: Constitutional: No Fever, No Chills Cardiovascular: No Chest Pain, No SOB Respiratory: No Cough, No Dyspnea Gastrointestinal: No Nausea, No Vomiting, No Diarrhea, No abdominal Pain Neuro: No Weakness, No Headache Psych: Positive substance abuse, No Anxiety/Panic, positive Depression, no SI no HI Yes all other systems are reviewed and are negative [facility] Past Medical History Attestation statement: The following information was validated with the patient. Source: old records reviewed Medical History Substance use Social History Social History Alcohol intake: current Alcohol intake frequency: a few times a week Patient Tobacco Use Status: Current everyday Tobacco user Substance Use Type: Crack/Cocaine, Heroin and Marijuana Advance Directives: No Physical Exam Vital Signs: Vital Signs: Last Vital Signs Temp 98.3 F 08/25/22 23:39 Pulse 86 08/25/22 23:39 Resp 15 08/25/22 23:39 BP 137/88 08/25/22 23:39 Pulse Ox 95 08/25/22 23:39 O2 Del Method 08/25/22 23:39 BMI result Body Mass Index 29.2 Appearance: Alert. Oriented X3. No acute distress. Eyes: Pupils equal, round and reactive to light. ENT: Pharynx normal. Neck: Normal inspection. Neck supple. CVS: Normal heart rate and rhythm. Pulses normal. Respiratory: No respiratory distress. Lungs are clear to auscultation all lobes. Abdomen: Soft and nontender. Skin: Skin warm and dry. Normal skin color. Normal skin turgor. Extremities: No lower extremity edema. Gait well-balanced well coordinated. Neuro: No motor deficit. No sensory deficit. Cranial nerves 2-12 intact. Course Course Course Narrative: 52-year-old male presents via EMS for opioid overdose. Required 12 mg of Narcan intranasal, given by his roommate. Once EMS arrived to his apartment, patient was ambulatory. Patient presents with even unlabored respirations, lung sounds clear to auscultation all lobes, alert oriented x4, polite, cooperative, and answering all questions appropriately. Considering patient received 12 mg of Narcan, will monitor for 2 hours. Patient has had multiple presentations to this facility for accidental overdose. 00:00 patient is sleeping. Even unlabored respirations. Arousable to voice, polite, answering questions thoughtfully. I did discuss meeting with monomer recovery operator for detox in the morning, [facility], has been trying to get in contact with his psychiatrist however unable to connect. 01:20 patient alert oriented x4, again declines detox, patient [facility] that [facility] Will discharge home with Narcan. Patient verbalized understanding of and agrees to plan of care discharge home. Verbalized understanding of signs and symptoms indicating need for emergent intervention. Medical Decision Making Differential Diagnosis Differential Diagnoses: The differential diagnosis associated with the presentation includes Opioid overdose External Record Review External record reviewed: Outpatient record and Prior outpatient labs Prescription Management I considered prescription management with: Other (Narcan) Discharge Plan Discharge Clinical Impression: Drug overdose Patient Disposition: Home, Self-Care Instructions: Adult Overdose (ED) Additional Instructions: Please present to [facility]. Thank you for your service to our country. Thank you for choosing this emergency department for evaluation. Please follow-up with primary care physician as needed. Return to the emergency department for any new, concerning, or worsening symptoms. Prescriptions: No Action azithromycin 250 mg tablet See Rx Instructions .ROUTE .COMPLEX Qty: 6 0RF Rx Instructions: For 250 mg dose pack: take 500 mg today (day 1), then 250 mg for 4 days (days 2-5) naloxone [Narcan] 4 mg/actuation spray,non-aerosol 4 mg intranasal Q2M PRN (Reason: opioid overdose) Qty: 2 0RF Rx Instructions: spray 1 dose into ONE nostril; alternate nostrils w each dose until help arrives
[2022-08-25 21:48] VITALS: BP 125/76; PULSE 87; RESP 14; O2SAT 98
--- NOTE | 2022-08-25 22:15 | PC.NURSE ---
PT IS EASILY AROUSABLE, RESP ARE EQUAL AND NONLABORED
[2022-08-25 23:39] VITALS: BP 137/88; PULSE 86; RESP 15; TEMP 36.8; O2SAT 95
[2022-08-26 01:32] VITALS: BP 149/95; PULSE 81; RESP 16; TEMP 36.8; O2SAT 96
--- NOTE | 2022-08-26 01:47 | PC.NURSE ---
assumed care of pt aox4 pt requested food and refreshments- provided
[2022-08-26] MEDS: Naloxone HCl Nasal TAKE HOME 4 MG SPRAY NOSTRILALT (01:49)
--- NOTE | 2022-08-26 01:49 | PC.NURSE ---
per provider 12 mg to be given at discharge for take home
== END 2022-08-26 01:55 | disposition home or self-care (01) ==
PROVIDERS: Emergency Provider Emergency Medicine Emergency Medical Services
DX: T40.1X1A Poisoning by heroin, accidental (unintentional), initial encounter (principal); F14.10 Cocaine abuse, uncomplicated; Y92.9 Unspecified place or not applicable; Z79.899 Other long term (current) drug therapy
CPT/HCPCS: 99283

== ENCOUNTER 2022-09-09 17:24 | Emergency (ER) | payer MEDICARE, MEDICAID, SELFPAY ==
[2022-09-09 17:32] VITALS: BP 185/102; PULSE 102; O2SAT 98; BMI 20.3
[2022-09-09 17:48] VITALS: BP 157/102; PULSE 87; RESP 17; TEMP 35.9; O2SAT 94
--- NOTE | 2022-09-09 17:49 | ED_ITS ---
HPI - Overdose General Chief Complaint: ETOH/Substance Use Stated Complaint: overdose Time Seen by Provider: 09/09/22 17:38 Source: patient Mode of arrival: ambulatory Limitations: no limitations History of Present Illness HPI Narrative: Patient comes to the emergency room via ambulance, according to EMS, bystanders called EMS because patient was found unresponsive, known to use heroin. EMS gave him 1 mg of intranasal Narcan. Patient woke up immediately, no further intervention needed. Patient came awake, alert and oriented x3. Patient states that this was an accident, did not mean to hurt himself. Related Data Previous Rx's Medication Instructions Recorded azithromycin 250 mg tablet See Rx Instructions PO .COMPLEX #6 02/10/22 tabs naloxone 4 mg/actuation nasal 4 mg intranasal Q2M PRN opioid 02/10/22 spray (Narcan) overdose #2 ea Allergies Allergy/AdvReac Type Severity Reaction Status Date / Time No Known Allergies Allergy Verified 07/21/22 11:00 Review of Systems Review of Systems: Constitutional : No Weight loss, No Fever, No Chills, No Night Sweats, No Fatigue, No Malaise ENT/Mouth : No Hearing loss, No Ear Pain, No Nasal Congestion, No Sinus Pain, No Hoarseness, No sore throat, No Rhinorrhea, No Swallowing Difficulty Eyes: No Eye Pain, No Swelling, No Redness, No Foreign Body, No Discharge, No Vision Changes Cardiovascular : No Chest Pain, No SOB, No Dyspnea on Exertion, No Orthopnea, No Edema, No Palpitations Respiratory : No Cough, No Sputum, No Wheezing, No Smoke Exposure, No Dyspnea Gastrointestinal : No Nausea, No Vomiting, No Diarrhea, No Constipation, No abdominal Pain, No Hematochezia, No Melena Genitourinary : no irregular bleeding, No Dysuria, No Urinary Frequency, No Hematuria, No Urinary Incontinence, No Urgency, No Flank Pain, No Urinary Flow Changes, No Hesitancy Musculoskeletal : No joint pain, No Myalgias, No Joint Swelling Skin : No Skin Lesions, No rash Neuro : No Weakness, No Numbness, No Paresthesias, No Loss of Consciousness, No Dizziness, No Headache Psych : No Anxiety/Panic, No Depression, No SI/HI/AH/VH, admits to drug abuse Heme/Lymph: No Bruising, No Bleeding,No Lymphadenopathy Endocrine : No Polyuria, No Polydipsia, No Temperature Intolerance PMFSH Past Medical History Medical History Substance use Social History Social History Alcohol intake: unknown Patient Tobacco Use Status: Current everyday Tobacco user Smoked in Last 30 Days: Yes Use of substances other than those prescribed or required for medical reasons: Yes Substance Use Type: Heroin and IV Drugs Substance Use Frequency: Chronic Longstanding Advance Directives: No Advance Directives Information Provided: Yes Physical Exam Vital Signs: Vital Signs: Last Vital Signs Temp 96.6 F L 09/09/22 17:48 Pulse 84 09/09/22 20:46 Resp 17 09/09/22 20:46 BP 127/67 09/09/22 20:46 Pulse Ox 97 09/09/22 20:46 O2 Del Method 09/09/22 20:46 BMI result Body Mass Index 20.3 Const: Other: Appearance: Alert. Oriented X3. No acute distress. Eyes: Pupils equal, round and reactive to light. ENT: Pharynx normal. Neck: Normal inspection. Neck supple. No lymph nodes noted. No crepitus CVS: Normal heart rate and rhythm. Pulses normal. Normal S1 and S2 Respiratory: No respiratory distress. Breath sounds normal. No Wheezing. No rales Abdomen: Soft and nontender. No rigidity. No distention. Skin: Skin warm and dry. Normal skin color. Normal skin turgor. Extremities: No lower extremity edema. No Lacerations. No Rash Neuro: Oriented X 3. No motor deficit. No sensory deficit. Moving all extremities. No slurred speech. CN 2 through 12 grossly intact Psych: calm, cooperative, normal affect Course Course Course Narrative: -patient is calm, alert and oriented x3, cooperative. -vital stable, oxygen saturation 94% on room air, eating and drinking. -care/sude eval/trolley coach driver eval pending -patient will be discharged with home Narcan Medical Decision Making Medical Decision Making MDM Narrative: -patient remains stable, sleeping, oxygen saturation 98% on room air. -trolley coach driver/care team consult pending for sude evaluation -metabolize to freedom, not SI, not on a Section 12, if patient does not want to be seen by the care team for the SUDE, once patient is feeling better, he may be discharged -patient to be discharged with home Narcan -patient declined SUDE evaluation, patient feels well, patient is stable alert and oriented x3, oxygen saturation in the high 90s. -patient given home Narcan, ready to be discharged Differential Diagnosis Differential Diagnoses: The differential diagnosis associated with the presentation includes (Accidental overdose, intentional overdose) Discharge Plan Discharge Clinical Impression: Accidental overdose Patient Disposition: Home, Self-Care Instructions: Adult Overdose (ED) Additional Instructions: Please follow-up with your primary care physician tomorrow. If you have any worsening or new symptoms, please return to the emergency room or call 911 Prescriptions: No Action azithromycin 250 mg tablet See Rx Instructions .ROUTE .COMPLEX Qty: 6 0RF Rx Instructions: For 250 mg dose pack: take 500 mg today (day 1), then 250 mg for 4 days (days 2-5) naloxone [Narcan] 4 mg/actuation spray,non-aerosol 4 mg intranasal Q2M PRN (Reason: opioid overdose) Qty: 2 0RF Rx Instructions: spray 1 dose into ONE nostril; alternate nostrils w each dose until help arrives Interventions: Rich-Suicide Risk Severity Scale Last Done: 09/09/22 17:35
[2022-09-09 18:00] VITALS: RESP 16
[2022-09-09 20:46] VITALS: BP 127/67; PULSE 84; RESP 17; O2SAT 97
[2022-09-09] MEDS: Naloxone HCl Nasal TAKE HOME 4 MG SPRAY NOSTRILALT (22:53)
--- NOTE | 2022-09-10 00:12 | PC.NURSE ---
Assumed care of pt. at 1900. Pt. sleeping in bed. Pt. is arousable to voice. Pt. has snacks at bedside. Pt. woke up and asked to be d/c'd home. Pt. provided with narcan to take home.
== END 2022-09-09 22:30 | disposition home or self-care (01) ==
PROVIDERS: Emergency Provider Emergency Medicine
DX: T65.91XA Toxic effect of unspecified substance, accidental (unintentional), initial encounter (principal); R40.4 Transient alteration of awareness; Y92.9 Unspecified place or not applicable
CPT/HCPCS: 99284

== ENCOUNTER 2022-12-05 18:36 | Emergency (ER) | payer MEDICARE, MEDICAID, SELFPAY ==
[2022-12-05 18:44] VITALS: BP 160/100; PULSE 100; O2SAT 98
[2022-12-05 18:58] VITALS: BP 173/103; PULSE 89; RESP 22; TEMP 37.5; O2SAT 95; BMI 25.1
--- NOTE | 2022-12-05 19:11 | PC.NURSE ---
Addendum entered by Diallo Ascencio RN 12/05/22 19:15: Pt changed over by Security, belongings secured. Original Note: Assumed care of pt. Pt lying ojn stretcher, rousble to mild stimuli. Sts used normal amount of heroin for his use. Denies SI/HI. Pt p[laced on monitor w/ capnography. No acute behavioral concerns at this time. WCTM.
--- NOTE | 2022-12-05 21:12 | ED_ITS ---
HPI - Overdose General Chief Complaint: Overdose Stated Complaint: OD Time Seen by Provider: 12/05/22 18:50 Source: patient and EMS Mode of arrival: EMS History of Present Illness HPI Narrative: 52-year-old male who has not taken his Suboxone in over 2 weeks presents via EMS for heroin overdose. EMS reports that patient required 8 mg of Narcan. Patient denies any attempts to commit suicide and is not interested in detox at this time. Related Data Previous Rx's Medication Instructions Recorded azithromycin 250 mg tablet See Rx Instructions PO .COMPLEX #6 02/10/22 tabs naloxone 4 mg/actuation nasal 4 mg intranasal Q2M PRN opioid 02/10/22 spray (Narcan) overdose #2 ea Allergies Allergy/AdvReac Type Severity Reaction Status Date / Time No Known Allergies Allergy Verified 07/21/22 11:00 Review of Systems Review of Systems: Pertinent positives and negatives as stated in HPI PMFSH Past Medical History Source: nursing notes reviewed Medical History Substance use Social History Social History Alcohol intake: unknown Patient Tobacco Use Status: Current everyday Tobacco user Smoked in Last 30 Days: Yes Use of substances other than those prescribed or required for medical reasons: Yes Substance Use Type: Heroin Substance Use Frequency: Chronic Longstanding Last Used Substance: Just Prior to Admission Advance Directives: No Advance Directives Information Provided: Yes Physical Exam Vital Signs: Vital Signs: Last Vital Signs Temp 99.5 F 12/05/22 18:58 Pulse 89 12/05/22 18:58 Resp 22 H 12/05/22 18:58 BP 173/103 H 12/05/22 18:58 Pulse Ox 95 12/05/22 18:58 O2 Del Method Room Air 12/05/22 18:58 BMI result Body Mass Index 25.1 VITAL SIGNS: Reviewed. GENERAL: Well developed, well nourished, in no acute distress. HEAD: Normocephalic/atraumatic EYES: PERRLA, EOMI EARS: Ext canals without abnormality NOSE: Nares patent bilateral OROPHARYNX: no oral lesions noted, posterior pharynx clear NECK: Supple, no adenopathy LUNGS: Normal breath sounds. No adventitious sounds or accessory muscle use. SpO2<95> CARDIOVASCULAR: Regular rate and rhythm without noted murmurs ABDOMEN: Soft, non-tender, non-distended with bowel sounds. MUSCULOSKELETAL: No tenderness, deformities, or effusions noted on gross inspection. EXTREMITIES: No cyanosis, clubbing or edema. SKIN: Inspection of the skin reveals no rashes NEUROLOGIC: Drowsy but oriented x 4. Strength and sensation to light touch were grossly intact x 4. Medical Decision Making Medical Decision Making [facility] Narrative: This is a 52-year-old male who presents as an overdose without suicidal ideation and is declining any detox offerings. He is still pretty drowsy and is c urrently on capnography began be discharged when clinically sober. I have placed an order for the patient be discharged with home Narcan when he is cleared. Signed out to Dr Malcolm Differential Diagnosis Please see the discussion above Discharge Plan Discharge Clinical Impression: Drug overdose Patient Disposition: Still a Patient Instructions: Adult Overdose (ED) Additional Instructions: 1. Resume all home medications as prescribed. 2. You have been discharged with home Narcan. Do not hesitate to return to the emergency room for any worsening symptoms. Prescriptions: No Action azithromycin 250 mg tablet See Rx Instructions .ROUTE .COMPLEX Qty: 6 0RF Rx Instructions: For 250 mg dose pack: take 500 mg today (day 1), then 250 mg for 4 days (days 2-5) naloxone [Narcan] 4 mg/actuation spray,non-aerosol 4 mg intranasal Q2M PRN (Reason: opioid overdose) Qty: 2 0RF Rx Instructions: spray 1 dose into ONE nostril; alternate nostrils w each dose until help arrives
--- NOTE | 2022-12-05 21:26 | MHC.RECOVSUP ---
? Reason for consult:OPI o? Current location:[facility]? o? Identified substance use concern:? -? Overdose ? Intervention: o? Community resources provided ? Plan:N/A ? Additional information:classroom technology coach met with this pt and discussed treatment options, Pt declined any services at this time, [facility] provided this pt with recovery resources.
[2022-12-05 21:56] VITALS: BP 145/87; PULSE 88; RESP 16; TEMP 36.8; O2SAT 98
--- NOTE | 2022-12-05 22:17 | PC.NURSE ---
Ambulation trial successful, pt ambulating with stand by assist for safety. No respiratory distress noted.
[2022-12-06 01:10] VITALS: BP 130/87; PULSE 79; RESP 14; O2SAT 97
== END 2022-12-06 01:19 | disposition home or self-care (01) ==
PROVIDERS: Emergency Provider Internal Medicine
DX: T40.1X1A Poisoning by heroin, accidental (unintentional), initial encounter (principal); Y92.9 Unspecified place or not applicable; Z79.899 Other long term (current) drug therapy; Z71.51 Drug abuse counseling and surveillance of drug abuser
CPT/HCPCS: 99285